=== PATIENT | female | born 1985 | race African-American/Black ===

== ENCOUNTER 2017-02-28 15:06 | Emergency (ER) | payer OTHER, MEDICAID ==
[~2017-02-28] VITALS: Ht 165.1 cm; Wt 106.0 kg
[~2017-02-28 15:06] MED LIST: CYCL-36 PO; DILA8TAB4 PO; IBUP800 PO; PERC5TAB12 PO
[2017-02-28 15:08] VITALS: BP 137/81; PULSE 98; RESP 24; O2SAT 98
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
[2017-02-28] MEDS ORDERED: IBUP800T23 PO (15:29)
[2017-02-28] MEDS ORDERED: ROBA500T PO (15:29)
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
[2017-02-28 15:43] VITALS: TEMP 98.3
== END 2017-02-28 16:00 | disposition home or self-care (01) ==
LOC: NEPK 15:06
DX: S46.811A Strain of other muscles, fascia and tendons at shoulder and upper arm level, right arm, initial encounter (principal); M54.5 Low back pain; G89.29 Other chronic pain; F17.210 Nicotine dependence, cigarettes, uncomplicated; V43.52XA Car driver injured in collision with other type car in traffic accident, initial encounter; Y93.9 Activity, unspecified; Y92.410 Unspecified street and highway as the place of occurrence of the external cause; Y99.8 Other external cause status
CPT/HCPCS: 99283